=== PATIENT | female | born 2000 | race Caucasian/White ===

== ENCOUNTER 2020-09-01 11:39 | Emergency (ER) | payer MEDICAID ==
--- NOTE | 2020-09-01 11:58 | NUR ---
[employer]: ATTEMPT TO CALL PT FROM LOBBY TO TRIAGE. PT NIL X 1
--- NOTE | 2020-09-01 12:06 | NUR ---
PT NIL X 2
--- NOTE | 2020-09-01 12:16 | NUR ---
PT NIL X 3
== END 2020-09-01 12:24 | disposition left against medical advice (07) ==
LOC: ED 12:13
DX: M25.562 Pain in left knee (principal); Z53.21 Procedure and treatment not carried out due to patient leaving prior to being seen by health care provider